=== PATIENT | female | born 1975 | race Two or more races ===

== ENCOUNTER 2023-02-19 15:52 | Inpatient (IN) | payer OTHER ==
[~2023-02-19] VITALS: Ht 165.1 cm; Wt 119.3 kg
[2023-02-19] MEDS ORDERED: COZAAR25 MG PO (17:28)
[2023-02-19] MEDS ORDERED: GLUMETZA1000 MG PO (17:29)
[2023-02-19] MEDS ORDERED: HYDROCHLOROTHIA25 MG PO (17:29)
[2023-02-21] MEDS ORDERED: COZAAR50 MG PO (13:02)
[2023-02-21] MEDS ORDERED: PEPCID AC20 MG PO (13:03)
[2023-02-21] MEDS ORDERED: DILANTIN100 MG PO (13:03)
== END 2023-02-21 13:13 | disposition home or self-care (01) | DRG 392 ==
LOC: ER 15:52 → MEDI 23:08
PROVIDERS: ADMIT Internal Medicine; ATTEND Internal Medicine
PROC: BW21ZZZ Computerized Tomography (CT Scan) of Abdomen and Pelvis (ICD-10-PCS; principal; 2023-02-19)
DX: A09 Infectious gastroenteritis and colitis, unspecified (principal); D72.829 Elevated white blood cell count, unspecified; E87.6 Hypokalemia